=== PATIENT | female | born 1960 | race Caucasian/White ===

== ENCOUNTER → 2019-02-11 | Outpatient (CLI) | payer BC ==
--- NOTE | 2019-02-11 12:30 | Diagnostic Imaging Report ---
EXAMINATION: Right foot radiographs, 3 views. COMPARISON: None. HISTORY: 59-year-old female, fall off ladder one week ago. Right foot pain. FINDINGS: There is mild osteoarthritis of the first metatarsophalangeal joint. There is an os peroneum. There is a small calcaneal heel spur and mild degenerative type enthesopathy at the Achilles tendon insertion. There is no tibiotalar joint effusion. There is no identified acute fracture. There is no radiopaque foreign body. Bone mineralization and alignment is grossly unremarkable. IMPRESSION: 1. No identified acute bony abnormality of the right foot. 2. Mild osteoarthritis of the first metatarsophalangeal joint. 3. Degenerative type calcaneal enthesopathy. Dictated by: Dictated on workstation # [id number]
--- NOTE | 2019-02-11 12:31 | Diagnostic Imaging Report ---
INDICATION: Fall from ladder, pain. FINDINGS: No fracture, dislocation, or acute articular incongruity apparent. IMPRESSION: No acute-appearing abnormality. Dictated by: Dictated on workstation # [id number]
== END ==
LOC: RAD FS 11:53
PROVIDERS: ATTEND Nurse Practitioner Family
DX: S89.91XA Unspecified injury of right lower leg, initial encounter (principal); M19.071 Primary osteoarthritis, right ankle and foot; M77.31 Calcaneal spur, right foot; W11.XXXA Fall on and from ladder, initial encounter
CPT/HCPCS: 73590; 73630